=== PATIENT | female | born 1970 | race Caucasian/White ===

== ENCOUNTER 2020-11-20 17:26 | Emergency (ER) | payer OTHER ==
[2020-11-20 19:27] LABS: HEMOGLOBIN 14.6 gm/dl (12.3-15.3); RED BLOOD COUNT 4.8 M/UL (4.00-5.10); WHITE BLOOD COUNT 7.4 K/UL (4.5-11.0)
[2020-11-20 19:55] LABS: BUN/CREATININE RATIO 29 (0-10)
[2020-11-20] MEDS ORDERED: PREDNISONE 10 M10 MG PO (21:11)
[2020-11-20] MEDS ORDERED: ZITHROMAX250 MG PO (21:25)
== END 2020-11-20 21:38 | disposition home or self-care (01) ==
LOC: ER1 17:26
PROVIDERS: Physician Assistant
DX: J45.901 Unspecified asthma with (acute) exacerbation (principal); Z88.0 Allergy status to penicillin; Z88.2 Allergy status to sulfonamides; Z79.899 Other long term (current) drug therapy
CPT/HCPCS: 80053; 82550; 82553; 83874; 83880; 84484; 85025; 93005; 99285; Q9967

== ENCOUNTER 2021-01-19 20:04 | Emergency (ER) | payer OTHER ==
[~2021-01-19 20:04] MED LIST: PREDNISONE 10 M10 MG PO; ZITHROMAX250 MG PO
[2021-01-19 21:11] LABS: HEMOGLOBIN 13.5 gm/dl (12.3-15.3); RED BLOOD COUNT 4.47 M/UL (4.00-5.10); WHITE BLOOD COUNT 9.6 K/UL (4.5-11.0)
[2021-01-19 21:19] LABS: BUN/CREATININE RATIO 27 (0-10)
[2021-01-19] MEDS ORDERED: LODINE CAP 300300 MG PO (21:31)
== END 2021-01-19 21:52 | disposition home or self-care (01) ==
LOC: ER1 20:04
PROVIDERS: Physician Assistant
DX: M25.561 Pain in right knee (principal); J45.909 Unspecified asthma, uncomplicated; Z88.0 Allergy status to penicillin; Z88.2 Allergy status to sulfonamides
CPT/HCPCS: 73564; 80053; 85025; 85652; 86140; 99283

== ENCOUNTER 2021-03-01 14:33 | Emergency (ER) | payer OTHER ==
[~2021-03-01] VITALS: Ht 175.3 cm; Wt 117.9 kg
[~2021-03-01 14:33] MED LIST changes: +LODINE CAP 300300 MG PO
[2021-03-01 15:42] LABS: HEMOGLOBIN 15.1 gm/dl (12.3-15.3); RED BLOOD COUNT 5.28 M/UL (4.00-5.10); WHITE BLOOD COUNT 5.8 K/UL (4.5-11.0)
[2021-03-01 16:00] LABS: BUN/CREATININE RATIO 16 (0-10)
[2021-03-01] MEDS ORDERED: ZOFRAN4 MG PO (17:38)
== END 2021-03-01 19:55 | disposition home or self-care (01) ==
LOC: ER1 14:33
PROVIDERS: Nurse Practitioner
DX: Z23 Encounter for immunization (principal); U07.1 COVID-19
CPT/HCPCS: 71045; 80053; 85025; 93005; 99284; M0243; U0002

== ENCOUNTER 2021-05-16 10:38 | Emergency (ER) | payer OTHER ==
[~2021-05-16 10:38] MED LIST changes: +ZOFRAN4 MG PO
[2021-05-16 11:38] LABS: HEMOGLOBIN 15.6 gm/dl (12.3-15.3); RED BLOOD COUNT 5.12 M/UL (4.00-5.10); WHITE BLOOD COUNT 5.9 K/UL (4.5-11.0)
[2021-05-16 11:57] LABS: BUN/CREATININE RATIO 19 (0-10)
[2021-05-16] MEDS ORDERED: CIPRO500 MG PO (15:08)
[2021-05-16] MEDS ORDERED: METRONIDAZOLE500 MG PO (15:08)
== END 2021-05-16 15:18 | disposition home or self-care (01) ==
LOC: ER1 10:38
PROVIDERS: Physician Assistant
DX: A09 Infectious gastroenteritis and colitis, unspecified (principal); Z20.822 Contact with and (suspected) exposure to COVID-19; J45.909 Unspecified asthma, uncomplicated; Z88.0 Allergy status to penicillin; Z88.2 Allergy status to sulfonamides
CPT/HCPCS: 80053; 81001; 83690; 85025; 96374; 99284; J2405; Q9967; U0002

== ENCOUNTER 2021-10-27 21:45 | Inpatient (IN) | payer OTHER ==
[~2021-10-27] VITALS: Ht 175.3 cm; Wt 117.9 kg
[~2021-10-27 21:45] MED LIST changes: +CIPRO500 MG PO; +METRONIDAZOLE500 MG PO; +PREDNISONE20 MG PO
[2021-10-27 23:42] LABS: HEMOGLOBIN 15.9 gm/dl (12.3-15.3); RED BLOOD COUNT 5.25 M/UL (4.00-5.10); WHITE BLOOD COUNT 6.6 K/UL (4.5-11.0)
[2021-10-28 00:06] LABS: BUN/CREATININE RATIO 25 (0-10)
[2021-10-28] MEDS ORDERED: SINGULAIR10 MG PO (04:40)
[2021-10-28] MEDS ORDERED: FLONASE ALLER15.8 ML (04:42)
[2021-10-28 05:58] LABS: WHITE BLOOD COUNT 6.3 K/UL (4.5-11.0)
[2021-10-28 06:03] LABS: RED BLOOD COUNT 4.69 M/UL (4.00-5.10)
[2021-10-28 06:21] LABS: BUN/CREATININE RATIO 26 (0-10)
[2021-10-29] MEDS ORDERED: PROAIR HFA8.5 GM INH (04:45)
[2021-10-29 05:14] LABS: HEMOGLOBIN 13.4 gm/dl (12.3-15.3); RED BLOOD COUNT 4.48 M/UL (4.00-5.10)
[2021-10-29 05:17] LABS: WHITE BLOOD COUNT 10.6 K/UL (4.5-11.0)
[2021-10-29 05:38] LABS: BUN/CREATININE RATIO 22 (0-10)
[2021-10-29] MEDS ORDERED: BREZTRI AEROS10.7 GM PO (11:34)
[2021-10-29] MEDS ORDERED: ALBUTEROL2.5 MG/3 M NEB (11:35)
[2021-10-29] MEDS ORDERED: LORATADINE10 MG PO (11:35)
[2021-10-29] MEDS ORDERED: ARTHRITIS PAIN150 GM TP (11:37)
[2021-10-29] MEDS ORDERED: VITAMIN C1000 MG PO (11:37)
[2021-10-29] MEDS ORDERED: MELATONIN5 M2 PO (11:38)
[2021-10-29] MEDS ORDERED: FLAXSEED1000 MG PO (11:38)
[2021-10-29] MEDS ORDERED: VITAMIN D21250 MCG PO (11:40)
[2021-10-30 06:51] LABS: HEMOGLOBIN 12.7 gm/dl (12.3-15.3); RED BLOOD COUNT 4.25 M/UL (4.00-5.10)
[2021-10-30 07:10] LABS: WHITE BLOOD COUNT 7.4 K/UL (4.5-11.0)
[2021-10-30 07:18] LABS: BUN/CREATININE RATIO 20 (0-10)
[2021-10-30] MEDS ORDERED: MEDROL4 MG PO (12:31)
[2021-10-30] MEDS ORDERED: SPIRIVA18 MCG INH (12:31)
[2021-10-30] MEDS ORDERED: OMNICEF 300 MG300 MG PO (12:36)
== END 2021-10-30 15:10 | disposition home or self-care (01) | DRG 202 ==
LOC: ER1 21:45 → CDU 10-28 04:08 → M/S 10-28 04:08
PROVIDERS: Internal Medicine; Physician Assistant; ADMIT Internal Medicine
DX: J45.901 Unspecified asthma with (acute) exacerbation (principal); J18.9 Pneumonia, unspecified organism; Z20.822 Contact with and (suspected) exposure to COVID-19; E66.01 Morbid (severe) obesity due to excess calories; R00.0 Tachycardia, unspecified; R09.02 Hypoxemia; Z79.899 Other long term (current) drug therapy; Z90.89 Acquired absence of other organs; Z83.3 Family history of diabetes mellitus; Z82.49 Family history of ischemic heart disease and other diseases of the circulatory system; Z79.52 Long term (current) use of systemic steroids; Z68.38 Body mass index [BMI] 38.0-38.9, adult
CPT/HCPCS: 0240U; 36415; 36600; 71045; 80053; 81001; 82550; 82553; 82803; 83036; 83605; 83735; 83880; 84100; 84484; 85025; 86140; 87040; 87070; 87205; 93005; 94640; 94664; 94760; 96374; 96375; 99285; J0696; J1200; J1650; J2920; Q9967

== ENCOUNTER → 2021-11-14 | Outpatient (CLI) | payer OTHER ==
[~2021-11-14] MED LIST changes: +ALBUTEROL2.5 MG/3 M NEB; +ARTHRITIS PAIN150 GM TP; +BREZTRI AEROS10.7 GM PO; +FLAXSEED1000 MG PO; +FLONASE ALLER15.8 ML; +LORATADINE10 MG PO; +MEDROL4 MG PO; +MELATONIN5 M2 PO; +OMNICEF 300 MG300 MG PO; +PROAIR HFA8.5 GM INH; +SINGULAIR10 MG PO; +SPIRIVA18 MCG INH; +VITAMIN C1000 MG PO; +VITAMIN D21250 MCG PO
== END ==
LOC: HEART 5 14:18
DX: J18.9 Pneumonia, unspecified organism (principal); J45.909 Unspecified asthma, uncomplicated
CPT/HCPCS: 71046; 94060; 94729

== ENCOUNTER 2021-11-30 11:15 | Emergency (ER) | payer OTHER ==
[2021-11-30 12:41] LABS: HEMOGLOBIN 13.8 gm/dl (12.3-15.3); RED BLOOD COUNT 4.6 M/UL (4.00-5.10); WHITE BLOOD COUNT 7.5 K/UL (4.5-11.0)
[2021-11-30 13:51] LABS: BUN/CREATININE RATIO 25 (0-10)
[2021-11-30] MEDS ORDERED: PREDNISONE 20 M20 MG PO (15:19)
[2021-11-30] MEDS ORDERED: VIBRAMYCIN 100100 MG PO (15:19)
== END 2021-11-30 11:30 | disposition home or self-care (01) ==
LOC: ER1 11:15
PROVIDERS: Physician Assistant
DX: J45.901 Unspecified asthma with (acute) exacerbation (principal); R07.89 Other chest pain; Z20.822 Contact with and (suspected) exposure to COVID-19; Z88.0 Allergy status to penicillin; Z88.2 Allergy status to sulfonamides; Z88.1 Allergy status to other antibiotic agents
CPT/HCPCS: 0240U; 71045; 80053; 82550; 82553; 84484; 85025; 96374; 99285; J2930

== ENCOUNTER → 2021-12-03 | Outpatient (CLI) | payer OTHER ==
[~2021-12-03] MED LIST changes: +PREDNISONE 20 M20 MG PO; +VIBRAMYCIN 100100 MG PO
== END ==
LOC: EXRD 13:17
DX: J45.909 Unspecified asthma, uncomplicated (principal); R91.8 Other nonspecific abnormal finding of lung field
CPT/HCPCS: 71046

== ENCOUNTER 2022-03-18 19:34 | Emergency (ER) | payer OTHER ==
[2022-03-18] MEDS ORDERED: PREDNISONE 20 M20 MG PO (22:06)
== END 2022-03-18 22:28 | disposition home or self-care (01) ==
LOC: ER1 19:34
DX: T78.40XA Allergy, unspecified, initial encounter (principal); J45.901 Unspecified asthma with (acute) exacerbation
CPT/HCPCS: 94640; 94664; 96361; 96374; 96375; 99283; J1100; J2405

== ENCOUNTER → 2022-04-04 | Outpatient (CLI) | payer OTHER | LOC: HEART 5 14:53 | DX: J45.909 Unspecified asthma, uncomplicated (principal); R06.00 Dyspnea, unspecified | CPT/HCPCS: 94060; 94729; 95012 ==